=== PATIENT | female | born 1965 | race Caucasian/White ===

== ENCOUNTER 2016-11-08 03:08 | Emergency (ER) | payer BC ==
[~2016-11-08] VITALS: Ht 157.5 cm; Wt 136.9 kg
[~2016-11-08 03:08] MED LIST: GLUCOPHAGE500 MG PO; PRINIVIL5 MG PO
[2016-11-08] MEDS ORDERED: PRINIVIL10 MG PO (04:17)
[2016-11-08] MEDS ORDERED: LASIX20 MG PO (04:17)
== END 2016-11-08 05:15 | disposition short-term general hospital (02) ==
LOC: ER 03:08
DX: R10.10 Upper abdominal pain, unspecified (principal); Z88.0 Allergy status to penicillin; Z79.82 Long term (current) use of aspirin; Z79.84 Long term (current) use of oral hypoglycemic drugs; Z79.899 Other long term (current) drug therapy
CPT/HCPCS: J1885; J2405; J3010